=== PATIENT | male | born 1940 | race Caucasian/White ===

== ENCOUNTER → 2017-01-06 | Outpatient (CLI) | payer MEDICARE ==
[~2017-01-06] MED LIST: AMOX500T2 PO; ASPI325T PO; NIAC500 PO; SIMV20 PO
[2017-01-06 07:23] LABS: ANION GAP 7 MEQ/L (5-15); BICARBONATE 29.3 MEQ/L (21.0-32.0); BLOOD UREA NITROGEN 18 MG/DL (7-18); CHLORIDE 105 MEQ/L (98-107); GLOMERULAR FILTRATION RATE 49 ML/MIN (>89); GLUCOSE,FASTING 102 MG/DL (74-99); POTASSIUM 4.3 MEQ/L (3.5-5.1); SODIUM (NA) 141 MEQ/L (136-145)
[2017-01-06 11:45] LABS: HEMOGLOBIN A1b 1.6 %; HEMOGLOBIN LA1C 2.2 %; HEMOGLOBIN P3 5.3 %
== END ==
LOC: CLAB 06:37
PROVIDERS: ATTEND Family Medicine
DX: N18.3 Chronic kidney disease, stage 3 (moderate) (principal); R73.9 Hyperglycemia, unspecified
CPT/HCPCS: 36415; 80048; 83036

== ENCOUNTER → 2017-09-15 | Outpatient (CLI) | payer MEDICARE ==
[2017-09-15 07:19] LABS: AUTOMATED NEUTROPHIL # 4.3 TH/MM3 (1.8-7.7); BASOPHIL % 0.7 % (0.0-2.0); EOSINOPHIL # 0.2 TH/MM3 (0-0.4); EOSINOPHIL % 2.7 % (0.0-4.0); HEMATOCRIT 44.2 % (39.0-51.0); HEMOGLOBIN 15.2 GM/DL (13.0-17.0); LYMPH % 27.9 % (9.0-44.0); MEAN CELL VOLUME 94.7 FL (80.0-100.0); MEAN CORPUSCULAR HEMOGLOBIN 32.6 PG (27.0-34.0); MEAN CORPUSCULAR HGB CONC 34.4 % (32.0-36.0); MEAN PLATELET VOLUME 8.8 FL (7.0-11.0); MONO % 9.1 % (0.0-8.0); MONOCYTE # 0.7 TH/MM3 (0-0.9); NEUT % 59.6 % (16.0-70.0); PLATELET COUNT 143 TH/MM3 (150-450); RED BLOOD COUNT 4.67 MIL/MM3 (4.50-5.90); RED CELL DISTRIBUTION WIDTH 13.2 % (11.6-17.2); WHITE BLOOD COUNT 7.3 TH/MM3 (4.0-11.0)
[2017-09-15 07:25] LABS: ALBUMIN 3.8 GM/DL (3.4-5.0); AST (GOT) 30 U/L (15-37); BICARBONATE 29.7 MEQ/L (21.0-32.0); BLOOD UREA NITROGEN 19 MG/DL (7-18); CALCIUM 9.6 MG/DL (8.5-10.1); CHLORIDE 104 MEQ/L (98-107); CHOLESTEROL 154 MG/DL (120-200); CREATININE 1.39 MG/DL (0.60-1.30); DIRECT BILIRUBIN ADULT 0.2 MG/DL (0.0-0.2); GLOMERULAR FILTRATION RATE 49 ML/MIN (>89); GLUCOSE,FASTING 108 MG/DL (74-99); SODIUM (NA) 138 MEQ/L (136-145)
[2017-09-15 07:26] LABS: ALT (GPT) 34 U/L (12-78); TRIGLYCERIDES 204 MG/DL (42-150)
[2017-09-15 07:28] LABS: ALKALINE PHOSPHATASE 86 U/L (45-117); CHOLESTEROL/ HDL RATIO 3.69 RATIO; HDL CHOLESTEROL 41.7 MG/DL (40.0-60.0); INDIRECT BILIRUBIN 0.7 MG/DL (0.0-0.8); LDL CHOLESTEROL 72 MG/DL (0-99); TOTAL BILIRUBIN ADULT 0.9 MG/DL (0.2-1.0); TOTAL PROTEIN 7.1 GM/DL (6.4-8.2)
[2017-09-15 15:03] LABS: HEMOGLOBIN A1C 5.8 % (4.3-6.0)
== END ==
LOC: CLAB 06:42
PROVIDERS: ATTEND Family Medicine
DX: I25.10 Atherosclerotic heart disease of native coronary artery without angina pectoris (principal); E78.5 Hyperlipidemia, unspecified; I25.9 Chronic ischemic heart disease, unspecified; N18.3 Chronic kidney disease, stage 3 (moderate); M19.90 Unspecified osteoarthritis, unspecified site; G62.9 Polyneuropathy, unspecified; I10 Essential (primary) hypertension; Z79.899 Other long term (current) drug therapy
CPT/HCPCS: 36415; 80048; 80061; 80076; 83036; 85025